=== PATIENT | male | born 1975 | race Caucasian/White ===

== ENCOUNTER 2018-07-25 16:20 | Inpatient (IN) | payer MEDICARE ==
[~2018-07-25] VITALS: Ht 172.7 cm; Wt 125.4 kg
[2018-07-25] MEDS ORDERED: NITROGLYCERIN SUBLINGUAL 0.4 MG BOTTLE OF 25. SL PRN (16:30)
[2018-07-25] MEDS ORDERED: ASPIRIN 325 MG TABLET PO ONE (16:30)
--- NOTE | 2018-07-25 16:30 | PHYS DOC ---
Past Medical History Past Medical History: Diabetes-Type I, High Cholesterol, Hypertension, [place] Past Surgical History: Angioplasty, Other (AICD) Adult General Chief Complaint Chief Complaint: CHEST PAIN HPI HPI Patient is a 43 year old male presented to ER today for evaluation of substernal chest pain that started this morning. Patient fell dizzy this morning and he passed out while he was standing, he landed on the right hip. Patient denies hitting his head, no headache, no neck pain. EMS were called, however he felt better so he declined to come to the hospital. Patient is having more chest pain again so he came in now for evaluation. HE has history coronary artery disease, had numerous stents in his coronary artery. His card lacer is Dr. Law at [facility]. He denies any cough or fever. Review of Systems Review of Systems Constitutional: Denies fever or chills [] Eyes: Denies change in visual acuity, redness, or eye pain [] HENT: Denies nasal congestion or sore throat [] Respiratory: Denies cough or shortness of breath [] Cardiovascular: No additional information not addressed in HPI [] GI: Denies abdominal pain, nausea, vomiting, bloody stools or diarrhea [] : Denies dysuria or hematuria [] Musculoskeletal: Denies back pain or joint pain [] Integument: Denies rash or skin lesions [] Neurologic: Denies headache, focal weakness or sensory changes [] Endocrine: Denies polyuria or polydipsia [] All other systems were reviewed and found to be within normal limits, except as documented in this note. Current Medications Current Medications Current Medications Medications (Trade) Dose Ordered Sig/[facility] Start Time Stop Time Status Last Admin Dose Admin Aspirin ([place] Aspirin) 325 mg 1X ONCE 07/25/18 16:30 07/25/18 16:51 DC 07/25/18 17:16 325 MG Nitroglycerin (Nitrostat) 0.4 mg PRN Q5MIN PRN 07/25/18 16:30 07/26/18 16:29 Allergies Allergies Allergies Coded Allergies Type Severity Reaction Last Updated Verified No Known Drug Allergies 07/25/18 No Physical Exam Physical Exam Constitutional: Well developed, well nourished, NO acute distress, non-toxic appearance. [] HENT: Normocephalic, atraumatic, bilateral external ears normal, oropharynx moist, no oral exudates, nose normal. [] Eyes: PERRLA, EOMI, conjunctiva normal, no discharge. [] Neck: Normal range of motion, no tenderness, supple, no stridor. [] Cardiovascular:Heart rate regular rhythm, no murmur [] Lungs & Thorax: Bilateral breath sounds clear to auscultation [] Abdomen: Bowel sounds normal, soft, no tenderness, no masses, no pulsatile masses. [] Skin: Warm, dry, no erythema, no rash. APPEARED PALE. Back: No tenderness, no CVA tenderness. [] Extremities: No tenderness, no cyanosis, no clubbing, ROM intact, no edema. [] Neurologic: Alert and oriented X 3, normal motor function, normal sensory function, no focal deficits noted. [] Psychologic: Affect normal, judgement normal, mood normal. [] Current Patient Data Vital Signs Vital Signs Date Time Temp Pulse Resp B/P (MAP) Pulse Ox O2 Delivery O2 Flow Rate FiO2 07/25/18 16:30 97.6 70 24 134/70 (91) 95 Room Air 97.6 Lab Values Laboratory Tests Test 07/25/18 16:36 White Blood Count 11.6 x10^3/uL (4.0-11.0) H Red Blood Count 4.86 x10^6/uL (4.30-5.70) Hemoglobin 14.7 g/dL (13.0-17.5) Hematocrit 44.4 % (39.0-53.0) Mean Corpuscular Volume 91 fL (79-100) Mean Corpuscular Hemoglobin 30 pg (25-35) Mean Corpuscular Hemoglobin Concent 33 g/dL (31-37) Red Cell Distribution Width 12.7 % (11.5-14.5) Platelet Count 164 x10^3/uL (140-400) Neutrophils (%) (Auto) 76 % (31-73) H Lymphocytes (%) (Auto) 17 % (24-48) L Monocytes (%) (Auto) 5 % (0-9) Eosinophils (%) (Auto) 1 % (0-3) Basophils (%) (Auto) 1 % (0-3) Neutrophils # (Auto) 8.8 x10^3uL (1.8-7.7) H Lymphocytes # (Auto) 2.0 x10^3/uL (1.0-4.8) Monocytes # (Auto) 0.6 x10^3/uL (0.0-1.1) Eosinophils # (Auto) 0.1 x10^3/uL (0.0-0.7) Basophils # (Auto) 0.1 x10^3/uL (0.0-0.2) Prothrombin Time 13.7 SEC (11.7-14.0) Prothrombin Time INR 1.1 (0.8-1.1) PTT 28 SEC (24-38) Sodium Level 134 mmol/L (136-145) L Potassium Level 4.6 mmol/L (3.5-5.1) Chloride Level 96 mmol/L (98-107) L Carbon Dioxide Level 32 mmol/L (21-32) Anion Gap 6 (6-14) Blood Urea Nitrogen 13 mg/dL (8-26) Creatinine 1.1 mg/dL (0.7-1.3) Estimated GFR (Cockcroft-Gault) 72.4 BUN/Creatinine Ratio 12 (6-20) Glucose Level 229 mg/dL (70-99) H Calcium Level 9.2 mg/dL (8.5-10.1) Magnesium Level 2.0 mg/dL (1.8-2.4) Total Bilirubin 0.4 mg/dL (0.2-1.0) Aspartate Amino Transferase (AST) 24 U/L (15-37) Alanine Aminotransferase (ALT) 39 U/L (16-63) Alkaline Phosphatase 87 U/L (46-116) Creatine Kinase 100 U/L (39-308) Creatine Kinase MB (Mass) 2.0 ng/mL (0.0-3.6) Creatine Kinase MB Relative Index 2.0 % (0-4) Troponin I Quantitative < 0.017 ng/mL (0.000-0.055) FA-Abd-L-Type Natriuretic Peptide 35 pg/mL (0-124) Total Protein 8.3 g/dL (6.4-8.2) H Albumin 3.8 g/dL (3.4-5.0) Albumin/Globulin Ratio 0.8 (1.0-1.7) L Lipase 345 U/L (73-393) Laboratory Tests 07/25/18 16:36 Laboratory Tests 4/28/19 16:36 EKG EKG EKG was read by this physician at 1630, rate of 66 bpm, sinus rhythm, no STEMI. [] Radiology/Procedures Radiology/Procedures [] Course & Med Decision Making Course & Med Decision Making Pertinent Labs and Imaging studies reviewed. (See chart for details) [] Dragon Disclaimer Dragon Disclaimer This electronic medical record was generated, in whole or in part, using a voice recognition dictation system. Departure Departure Impression: Primary Impression: Chest pain Additional Impression: Syncope Disposition: 09 ADMITTED INPATIENT Admitting Physician: Patty Foote Condition: STABLE Problem Qualifiers JUANY HARRISON DO Jul 25, 2018 16:30
[2018-07-25 16:47] LABS: BASO # 0.1 x10^3/uL (0.0-0.2); BASO % 1 % (0-3); EOS # 0.1 x10^3/uL (0.0-0.7); EOS % 1 % (0-3); HEMATOCRIT 44.4 % (39.0-53.0); HEMOGLOBIN 14.7 g/dL (13.0-17.5); LYMPH % 17 % (24-48); MEAN CORPUSCULAR HEMOGLOBIN 30 pg (25-35); MEAN CORPUSCULAR HGB CONC 33 g/dL (31-37); MEAN CORPUSCULAR VOLUME 91 fL (79-100); MONO # 0.6 x10^3/uL (0.0-1.1); MONO % 5 % (0-9); NEUT # 8.8 x10^3uL (1.8-7.7); NEUT % 76 % (31-73); PLATELET COUNT 164 x10^3/uL (140-400); RED BLOOD COUNT 4.86 x10^6/uL (4.30-5.70); RED CELL DISTRIBUTION WIDTH 12.7 % (11.5-14.5); WHITE BLOOD COUNT 11.6 x10^3/uL (4.0-11.0)
[2018-07-25 16:57] LABS: PROTHROMBIN TIME PATIENT 13.7 SEC (11.7-14.0)
[2018-07-25 17:01] LABS: CALCIUM 9.2 mg/dL (8.5-10.1); CREATININE 1.1 mg/dL (0.7-1.3); GFR 72.4; POTASSIUM 4.6 mmol/L (3.5-5.1)
[2018-07-25 17:06] LABS: ALBUMIN 3.8 g/dL (3.4-5.0); ALBUMIN/GLOBULIN RATIO 0.8 (1.0-1.7); TOTAL BILIRUBIN 0.4 mg/dL (0.2-1.0); TOTAL PROTEIN 8.3 g/dL (6.4-8.2)
--- NOTE | 2018-07-25 17:26 | RAD ---
Right hip 2 views with one view pelvis. HISTORY: Hip pain after a fall Single view was taken of the pelvis. Upper pelvis is not entirely included on the current study. Visualized pelvis is intact. AP and lateral views were taken of the right hip. There is no fracture or acute osseous abnormality. IMPRESSION: 1. No fracture or acute osseous abnormality in the right hip. Electronically signed by: Robb Martin MD (07/25/2018 5:23 PM) [id number]
[2018-07-25] MEDS ORDERED: ONDANSETRON PF 4 MG/2 ML VIAL. IV PRN ×2 (17:30→17:45)
[2018-07-25] MEDS ORDERED: ZOLPIDEM 5 MG TABLET. PO PRN (17:45)
[2018-07-25] MEDS ORDERED: ACETAMINOPHEN/CODEINE 300/30MG TABLET. PO PRN (17:45)
[2018-07-25] MEDS ORDERED: MORPHINE SULFATE 2 MG/ML VIAL. IV PRN (17:45)
[2018-07-25] MEDS ORDERED: HYDROcodone/APAP 5/325MG 1 TAB TABLET PO PRN (17:45)
[2018-07-25] MEDS ORDERED: CALCIUM CARBONATE 500 MG TAB.CHEW PO PRN (17:45)
[2018-07-25] MEDS ORDERED: ACETAMINOPHEN 500 MG TABLET PO PRN (17:45)
--- NOTE | 2018-07-25 18:06 | RAD ---
AP chest. HISTORY: Chest pain AP view was taken of the chest. Lungs are free of infiltrates. Heart is normal in size. There is a pacemaker on the left. There is no effusion. IMPRESSION: 1. No acute chest disease. Electronically signed by: Robb Martin MD (07/25/2018 6:04 PM) [id number]
[2018-07-25 18:25] VITALS: BP 110/66
[2018-07-25 18:30] LABS: AMPHETAMINE/METHAMPHETAMINE NEG (NEG); BARBITURATES NEG (NEG); BENZODIAZEPINES POS (NEG); CANNABINOIDS NEG (NEG); COCAINE NEG (NEG); METHADONE NEG (NEG); OPIATES POS (NEG); PHENCYCLIDINE NEG (NEG)
[2018-07-25] MEDS ORDERED: POTA20TA82 PO (19:29)
[2018-07-25] MEDS ORDERED: METF500T16 PO (19:30)
[2018-07-25] MEDS ORDERED: FURO40TA4 PO (19:31)
[2018-07-25] MEDS ORDERED: GLIM4TAB2 PO (19:31)
[2018-07-25] MEDS ORDERED: AMLO10TA8 PO (19:32)
[2018-07-25] MEDS ORDERED: CLOP75TA PO (19:33)
[2018-07-25] MEDS ORDERED: SACU1TAB7 PO (19:33)
[2018-07-25] MEDS ORDERED: EZET10TA18 PO (19:34)
[2018-07-25] MEDS ORDERED: ATORVASTATIN CA80 MG PO (19:35)
[2018-07-25] MEDS ORDERED: CARV25TA PO (19:36)
[2018-07-25] MEDS ORDERED: UBID200C27 PO (19:38)
[2018-07-25] MEDS ORDERED: FISH1CAP PO (19:39)
[2018-07-25] MEDS ORDERED: CYCL10TA2 PO (19:39)
[2018-07-25] MEDS ORDERED: HYDR-2769 PO (19:42)
[2018-07-25] MEDS ORDERED: ALPR1TAB6 PO (19:42)
[2018-07-25] MEDS ORDERED: MORPHINE SULFATE IR PO (20:01)
[2018-07-25] MEDS ORDERED: HYDROcodone/APAP 10/325 1 TAB TABLET PO PRN (20:15)
[2018-07-25] MEDS ORDERED: CYCLOBENZAPRINE 10 MG TABLET. PO PRN (20:15)
[2018-07-25] MEDS: NICOTINE 21MG PATCH. TD SCH (20:50)
[2018-07-25] MEDS: ATORVASTATIN CALCIUM 40 MG TABLET. PO SCH (20:51)
[2018-07-25] MEDS: metFORMIN 500 MG TABLET PO SCH (20:52)
[2018-07-25] MEDS: SACUBITRIL/VALSARTAN 49/51MG TABLET. PO SCH (20:52)
[2018-07-25] MEDS: CARVEDILOL 12.5 MG TABLET. PO SCH (20:53)
[2018-07-25] MEDS: GLIMEPIRIDE 2 MG TABLET. PO SCH (20:53)
[2018-07-25] MEDS: ALPRAZolam 1 MG TABLET PO PRN (20:53)
[2018-07-25] MEDS: MORPHINE IR 15 MG TABLET PO SCH (20:59)
[2018-07-25 23:31] VITALS: BP 111/60
[2018-07-26 00:50] LABS: BASO # 0.1 x10^3/uL (0.0-0.2); BASO % 1 % (0-3); EOS # 0.3 x10^3/uL (0.0-0.7); EOS % 3 % (0-3); HEMOGLOBIN 13.3 g/dL (13.0-17.5); LYMPH # 3.1 x10^3/uL (1.0-4.8); LYMPH % 31 % (24-48); MEAN CORPUSCULAR HEMOGLOBIN 30 pg (25-35); MEAN CORPUSCULAR HGB CONC 33 g/dL (31-37); MEAN CORPUSCULAR VOLUME 91 fL (79-100); MONO # 0.9 x10^3/uL (0.0-1.1); MONO % 9 % (0-9); NEUT # 5.8 x10^3uL (1.8-7.7); NEUT % 57 % (31-73); PLATELET COUNT 147 x10^3/uL (140-400); RED BLOOD COUNT 4.38 x10^6/uL (4.30-5.70); RED CELL DISTRIBUTION WIDTH 12.8 % (11.5-14.5); WHITE BLOOD COUNT 10.1 x10^3/uL (4.0-11.0)
[2018-07-26 03:30] VITALS: BP 126/66
--- NOTE | 2018-07-26 07:26 | EKG ---
[facility] [address] [place] [address] Test Date: 2018-07-25 Test Time: 16:27:29 Pat Name: GIRISH AYOUB Department: Room: 210 1 Gender: M Operations Technician: : 1975 Requested By: JUANY HARRISON Order Number: [id number] Reading MD: Jorge Garrett Measurements Intervals [place] Rate: 66 P: 40 [place]: 148 QRS: 152 QRSD: 142 T: 47 QT: 424 QTc: 446 Interpretive Statements V PACED RHYTHM Electronically Signed On 07-28-2018 17:41:50 CDT by Jorge Garrett
[2018-07-26 07:42] VITALS: BP 130/70
[2018-07-26] MEDS ORDERED: POTASSIUM CHLORIDE 20 MEQ TABLET.ER. PO SCH (08:00)
--- NOTE | 2018-07-26 08:13 | PDOC1 ---
History and Physical Date of Admission: Date of Admission DATE: 07/26/18 TIME: 08:10 Chief Complaint: Chief Complain: Chest discomfort History of Present Illness: HPI: 43 year old male w/ PMHx DM, HTN, HLD, CAD s/p stenting x9, Vfib arrest s/p AICD/PPM who presented to ER today for evaluation of substernal chest pain that started this morning. Patient fell dizzy yesterday morning while doing dishes and he passed out while he was standing, he landed on the right hip. Patient denies hitting his head, no headache, no neck pain. EMS were called, however he felt better so he declined to come to the hospital. Patient was having more chest pain again so he came in for evaluation. No associated SOA, palpitations, diaphoresis, or nausea/vomiting. No recent LE edema, orthopnea, or PND. Stress test and echo conducted 06/21/18 at . Follows very closely with Dr. Ryan at . Has f/u appointment scheduled for July 28. Reports compliance with medications. Was started on Entresto 2 weeks ago. Of note, has had two other episodes of passing out over the last 3 years. Had thorough workup at each time, which reportedly did not have any acute findings. His only complaint this morning after overnight is a dry mouth. Negative orthostatics. Negative jeremy-halpike Past Medical/Surgical History: PMH/PSH: PMHx: DM, HTN, HLD, CAD s/p stenting x9, Vfib arrest s/p AICD/PPM P Surg Hx: AICD Allergies: Allergies: Coded Allergies: No Known Drug Allergies (Unverified , 07/25/18) Family History: Family History: HTN, DM, CAD - father Social History: Social Hisoty: Smoker No ETOH No illicit drug use, lives with and 4 year old daughter Current Medications: Current Medications Current Medications Aspirin ([place] Aspirin) 325 mg 1X ONCE PO Last administered on 07/25/18at 17:16; Start 07/25/18 at 16:30; Stop 07/25/18 at 16:51; Status DC Nitroglycerin (Nitrostat) 0.4 mg PRN Q5MIN PRN SL CP RATING > 1/10; Start 07/25/18 at 16:30; Stop 07/26/18 at 16:29 Ondansetron HCl (Zofran) 4 mg PRN Q8HRS PRN IV NAUSEA/VOMITING; Start 07/25/18 at 17:30; Stop 07/25/18 at 17:37; Status DC Ondansetron HCl (Zofran) 4 mg PRN Q6HRS PRN IV NAUSEA/VOMITING; Start 07/25/18 at 17:45 Morphine Sulfate (Morphine Sulfate) 2 mg PRN Q2HR PRN IV PAIN; Start 07/25/18 a t 17:45 Acetaminophen (Tylenol) 500 mg PRN Q6HRS PRN PO MILD PAIN / TEMP; Start 07/25/18 at 17:45 Acetaminophen/ Codeine Phosphate (Tylenol #3) 1 tab PRN Q6HRS PRN PO MODERATE PAIN; Start 07/25/18 at 17:45 Zolpidem Tartrate (Ambien) 5 mg PRN QHS PRN PO INSOMNIA; Start 07/25/18 at 17:45 Calcium Carbonate/ Glycine (Tums) 500 mg PRN AFTMEALHC PRN PO INDIGESTION; Start 07/25/18 at 17:45 Acetaminophen/ Hydrocodone Bitart (Lortab 5/325) 1 tab PRN Q4HRS PRN PO SEVERE PAIN; Start 07/25/18 at 17:45 Alprazolam (Xanax) 1 mg PRN TID PRN PO ANXIETY / AGITATION Last administered on 07/25/18at 20:53; Start 07/25/18 at 20:15 Amlodipine Besylate (Norvasc) 10 mg DAILY PO ; Start 07/26/18 at 09:00 Clopidogrel Bisulfate (Plavix) 75 mg DAILY PO ; Start 07/26/18 at 09:00 Cyclobenzaprine HCl (Flexeril) 10 mg PRN BID PRN PO MUSCLE SPASMS; Start 07/25/18 at 20:15 EZETIMIBE (Zetia) 10 mg DAILY PO ; Start 07/26/18 at 09:00 Furosemide (Lasix) 40 mg DAILY PO ; Start 07/26/18 at 09:00 Acetaminophen/ Hydrocodone Bitart (Lortab 10/325) 1 tab PRN Q4HRS PRN PO PAIN; Start 07/25/18 at 20:15 Atorvastatin Calcium (Lipitor) 80 mg DAILY PO Last administered on 4/28/19at 20:51; Start 07/25/18 at 21:00 Carvedilol (Coreg) 50 mg BIDWMEALS PO Last administered on 07/25/18 20:53; Start 07/25/18 at 21:00 Fish Oil (Fish Oil) 1,000 mg DAILY PO ; Start 07/26/18 at 09:00 Glimepiride (Amaryl) 4 mg BIDWMEALS PO Last administered on 07/25/18 20:53; Start 07/25/18 at 21:00 Metformin HCl (Glucophage) 1,000 mg BIDWMEALS PO Last administered on 07/25/18 20:52; Start 07/25/18 at 21:00 Potassium Chloride (Klor-Con) 20 meq DAILYWBKFT PO ; Start 07/26/18 at 08:00 Sacubitril/ Valsartan (Entresto 49 Mg-51 Mg) 1 tab BID PO Last administered on 07/25/18 20:52; Start 07/25/18 at 21:00 Non-Formulary Medication (Ubidecarenone (Coenzyme Q-10)) 400 mg DAILY PO ; Start 07/26/18 at 09:00; Status UNV Morphine Sulfate (Morphine Ir) 15 mg TID PO Last administered on 07/25/18 20:59; Start 07/25/18 at 21:00 Nicotine (Nicoderm Cq 21mg) 1 patch DAILY TD Last administered on 07/25/18 20:50; Start 07/25/18 at 21:00 Active Scripts Active Reported [Morphine Sulfate Ir] 15 Mg PO TID Hydrocodone-Apap 10-325 (Hydrocodone Bit/Acetaminophen) 1 Tab Tablet 1 Tab PO PRN Q4HRS PRN Alprazolam 1 Mg Tablet 1 Tab PO TID PRN Cyclobenzaprine Hcl 10 Mg Tablet 10 Mg PO BID PRN Fish Oil 1,200 Mg Fish Oil (Fish Oil/Dha/Epa) 1 Each Capsule 1 Each PO DAILY Coenzyme Q-10 (Ubidecarenone) 200 Mg Capsule 400 Mg PO DAILY Coreg (Carvedilol) 25 Mg Tablet 50 Mg PO BIDWMEALS Atorvastatin Calcium 80 Mg Tablet 1 Tab PO DAILY Zetia (Ezetimibe) 10 Mg Tablet 1 Tab PO DAILY Clopidogrel (Clopidogrel Bisulfate) 75 Mg Tablet 1 Tab PO DAILY Entresto 49 mg-51 mg Tablet (Sacubitril/Valsartan) 1 Each Tablet 1 Each PO BID Amlodipine Besylate 10 Mg Tablet 10 Mg PO DAILY Furosemide 40 Mg Tablet 1 Tab PO DAILY Glimepiride 4 Mg Tablet 1 Tab PO BID Metformin Hcl 500 Mg Tablet 1,000 Mg PO BIDWMEALS Potassium Chloride 20 Meq Tablet.er 20 Meq PO DAILY ROS: Review of Systems Review of System REVIEW OF SYSTEMS: GENERAL: Denies weakness SKIN: No bruising, hair changes or rashes. EYES: No blurred, double or loss of vision. NOSE AND THROAT: No history of nosebleeds, hoarseness or sore throat. HEART: No history of palpitations, chest pain or shortness of breath on exertion. LUNGS: Denies cough, hemoptysis, wheezing or shortness of breath. GASTROINTESTINAL: Denies changes in appetite, nausea, vomiting, diarrhea or constipation. GENITOURINARY: No history of frequency, urgency, hesitancy or nocturia. NEUROLOGIC: Denies history of numbness, tingling, tremor or weakness. PSYCHIATRIC: No history of panic, anxiety or depression. ENDOCRINE: No history of heat or cold intolerance, polyuria or polydipsia. EXTREMITIES: Denies muscle weakness, joint pain, pain on walking or stiffness. Physical Exam: Vital Signs: Vital Signs Date Time Temp Pulse Resp B/P (MAP) Pulse Ox O2 Delivery O2 Flow Rate FiO2 07/26/18 07:42 98.7 82 16 130/70 (90) 94 Room Air 98.7 Physcial Exam: GEN.: No apparent distress. Alert and oriented. HEENT: Head is normocephalic, atraumatic NECK: Supple, no JVD LUNGS: Clear to auscultation without rhonchi or wheezing HEART: RRR, S1, S2 present. Peripheral pulses intact ABDOMEN: Soft, nontender. Positive bowel sounds no organomegaly EXTREMITIES: Without any cyanosis, clubbing, or edema. Pedal pulses intact NEUROLOGIC: Normal speech, normal tone. A&O x 3 PSYCHIATRIC: Normal affect, normal mood. Stable SKIN: No ulcerations or rashes Labs: Labs: Laboratory Tests Test 07/25/18 16:36 07/25/18 17:45 07/25/18 20:49 07/25/18 21:00 White Blood Count 11.6 x10^3/uL (4.0-11.0) Red Blood Count 4.86 x10^6/uL (4.30-5.70) Hemoglobin 14.7 g/dL (13.0-17.5) Hematocrit 44.4 % (39.0-53.0) Mean Corpuscular Volume 91 fL (79-100) Mean Corpuscular Hemoglobin 30 pg (25-35) Mean Corpuscular Hemoglobin Concent 33 g/dL (31-37) Red Cell Distribution Width 12.7 % (11.5-14.5) Platelet Count 164 x10^3/uL (140-400) Neutrophils (%) (Auto) 76 % (31-73) Lymphocytes (%) (Auto) 17 % (24-48) Monocytes (%) (Auto) 5 % (0-9) Eosinophils (%) (Auto) 1 % (0-3) Basophils (%) (Auto) 1 % (0-3) Neutrophils # (Auto) 8.8 x10^3uL (1.8-7.7) Lymphocytes # (Auto) 2.0 x10^3/uL (1.0-4.8) Monocytes # (Auto) 0.6 x10^3/uL (0.0-1.1) Eosinophils # (Auto) 0.1 x10^3/uL (0.0-0.7) Basophils # (Auto) 0.1 x10^3/uL (0.0-0.2) Prothrombin Time 13.7 SEC (11.7-14.0) Prothromb Time International Ratio 1.1 (0.8-1.1) Activated Partial Thromboplast Time 28 SEC (24-38) Sodium Level 134 mmol/L (136-145) Potassium Level 4.6 mmol/L (3.5-5.1) Chloride Level 96 mmol/L (98-107) Carbon Dioxide Level 32 mmol/L (21-32) Anion Gap 6 (6-14) Blood Urea Nitrogen 13 mg/dL (8-26) Creatinine 1.1 mg/dL (0.7-1.3) Estimated GFR (Cockcroft-Gault) 72.4 BUN/Creatinine Ratio 12 (6-20) Glucose Level 229 mg/dL (70-99) Calcium Level 9.2 mg/dL (8.5-10.1) Magnesium Level 2.0 mg/dL (1.8-2.4) Total Bilirubin 0.4 mg/dL (0.2-1.0) Aspartate Amino Transf (AST/SGOT) 24 U/L (15-37) Alanine Aminotransferase (ALT/SGPT) 39 U/L (16-63) Alkaline Phosphatase 87 U/L (46-116) Creatine Kinase 100 U/L (39-308) Creatine Kinase MB (Mass) 2.0 ng/mL (0.0-3.6) Creatine Kinase MB Relative Index 2.0 % (0-4) Troponin I Quantitative < 0.017 ng/mL (0.000-0.055) < 0.017 ng/mL (0.000-0.055) PS-Xej-I-Type Natriuretic Peptide 35 pg/mL (0-124) Total Protein 8.3 g/dL (6.4-8.2) Albumin 3.8 g/dL (3.4-5.0) Albumin/Globulin Ratio 0.8 (1.0-1.7) Lipase 345 U/L (73-393) Urine Opiates Screen Pos (NEG) Urine Methadone Screen Neg (NEG) Urine Barbiturates Neg (NEG) Urine Phencyclidine Screen Neg (NEG) Urine Amphetamine/Methamphetamine Neg (NEG) Urine Benzodiazepines Screen Pos (NEG) Urine Cocaine Screen Neg (NEG) Urine Cannabinoids Screen Neg (NEG) Urine Ethyl Alcohol Neg (NEG) Glucose (Fingerstick) 155 mg/dL (70-99) Test 07/26/18 00:30 07/26/18 07:24 White Blood Count 10.1 x10^3/uL (4.0-11.0) Red Blood Count 4.38 x10^6/uL (4.30-5.70) Hemoglobin 13.3 g/dL (13.0-17.5) Hematocrit 40.0 % (39.0-53.0) Mean Corpuscular Volume 91 fL (79-100) Mean Corpuscular Hemoglobin 30 pg (25-35) Mean Corpuscular Hemoglobin Concent 33 g/dL (31-37) Red Cell Distribution Width 12.8 % (11.5-14.5) Platelet Count 147 x10^3/uL (140-400) Neutrophils (%) (Auto) 57 % (31-73) Lymphocytes (%) (Auto) 31 % (24-48) Monocytes (%) (Auto) 9 % (0-9) Eosinophils (%) (Auto) 3 % (0-3) Basophils (%) (Auto) 1 % (0-3) Neutrophils # (Auto) 5.8 x10^3uL (1.8-7.7) Lymphocytes # (Auto) 3.1 x10^3/uL (1.0-4.8) Monocytes # (Auto) 0.9 x10^3/uL (0.0-1.1) Eosinophils # (Auto) 0.3 x10^3/uL (0.0-0.7) Basophils # (Auto) 0.1 x10^3/uL (0.0-0.2) Troponin I Quantitative < 0.017 ng/mL (0.000-0.055) Glucose (Fingerstick) 155 mg/dL (70-99) Laboratory Tests Test 07/25/18 16:36 07/25/18 17:45 07/25/18 20:49 07/25/18 21:00 White Blood Count 11.6 x10^3/uL (4.0-11.0) Red Blood Count 4.86 x10^6/uL (4.30-5.70) Hemoglobin 14.7 g/dL (13.0-17.5) Hematocrit 44.4 % (39.0-53.0) Mean Corpuscular Volume 91 fL (79-100) Mean Corpuscular Hemoglobin 30 pg (25-35) Mean Corpuscular Hemoglobin Concent 33 g/dL (31-37) Red Cell Distribution Width 12.7 % (11.5-14.5) Platelet Count 164 x10^3/uL (140-400) Neutrophils (%) (Auto) 76 % (31-73) Lymphocytes (%) (Auto) 17 % (24-48) Monocytes (%) (Auto) 5 % (0-9) Eosinophils (%) (Auto) 1 % (0-3) Basophils (%) (Auto) 1 % (0-3) Neutrophils # (Auto) 8.8 x10^3uL (1.8-7.7) Lymphocytes # (Auto) 2.0 x10^3/uL (1.0-4.8) Monocytes # (Auto) 0.6 x10^3/uL (0.0-1.1) Eosinophils # (Auto) 0.1 x10^3/uL (0.0-0.7) Basophils # (Auto) 0.1 x10^3/uL (0.0-0.2) Prothrombin Time 13.7 SEC (11.7-14.0) Prothromb Time International Ratio 1.1 (0.8-1.1) Activated Partial Thromboplast Time 28 SEC (24-38) Sodium Level 134 mmol/L (136-145) Potassium Level 4.6 mmol/L (3.5-5.1) Chloride Level 96 mmol/L (98-107) Carbon Dioxide Level 32 mmol/L (21-32) Anion Gap 6 (6-14) Blood Urea Nitrogen 13 mg/dL (8-26) Creatinine 1.1 mg/dL (0.7-1.3) Estimated GFR (Cockcroft-Gault) 72.4 BUN/Creatinine Ratio 12 (6-20) Glucose Level 229 mg/dL (70-99) Calcium Level 9.2 mg/dL (8.5-10.1) Magnesium Level 2.0 mg/dL (1.8-2.4) Total Bilirubin 0.4 mg/dL (0.2-1.0) Aspartate Amino Transf (AST/SGOT) 24 U/L (15-37) Alanine Aminotransferase (ALT/SGPT) 39 U/L (16-63) Alkaline Phosphatase 87 U/L (46-116) Creatine Kinase 100 U/L (39-308) Creatine Kinase MB (Mass) 2.0 ng/mL (0.0-3.6) Creatine Kinase MB Relative Index 2.0 % (0-4) Troponin I Quantitative < 0.017 ng/mL (0.000-0.055) < 0.017 ng/mL (0.000-0.055) LV-Pve-W-Type Natriuretic Peptide 35 pg/mL (0-124) Total Protein 8.3 g/dL (6.4-8.2) Albumin 3.8 g/dL (3.4-5.0) Albumin/Globulin Ratio 0.8 (1.0-1.7) Lipase 345 U/L (73-393) Urine Opiates Screen Pos (NEG) Urine Methadone Screen Neg (NEG) Urine Barbiturates Neg (NEG) Urine Phencyclidine Screen Neg (NEG) Urine Amphetamine/Methamphetamine Neg (NEG) Urine Benzodiazepines Screen Pos (NEG) Urine Cocaine Screen Neg (NEG) Urine Cannabinoids Screen Neg (NEG) Urine Ethyl Alcohol Neg (NEG) Glucose (Fingerstick) 155 mg/dL (70-99) Test 07/26/18 00:30 07/26/18 07:24 White Blood Count 10.1 x10^3/uL (4.0-11.0) Red Blood Count 4.38 x10^6/uL (4.30-5.70) Hemoglobin 13.3 g/dL (13.0-17.5) Hematocrit 40.0 % (39.0-53.0) Mean Corpuscular Volume 91 fL (79-100) Mean Corpuscular Hemoglobin 30 pg (25-35) Mean Corpuscular Hemoglobin Concent 33 g/dL (31-37) Red Cell Distribution Width 12.8 % (11.5-14.5) Platelet Count 147 x10^3/uL (140-400) Neutrophils (%) (Auto) 57 % (31-73) Lymphocytes (%) (Auto) 31 % (24-48) Monocytes (%) (Auto) 9 % (0-9) Eosinophils (%) (Auto) 3 % (0-3) Basophils (%) (Auto) 1 % (0-3) Neutrophils # (Auto) 5.8 x10^3uL (1.8-7.7) Lymphocytes # (Auto) 3.1 x10^3/uL (1.0-4.8) Monocytes # (Auto) 0.9 x10^3/uL (0.0-1.1) Eosinophils # (Auto) 0.3 x10^3/uL (0.0-0.7) Basophils # (Auto) 0.1 x10^3/uL (0.0-0.2) Troponin I Quantitative < 0.017 ng/mL (0.000-0.055) Glucose (Fingerstick) 155 mg/dL (70-99) Assessment/Plan Assessment/Plan A/P: Chest pain - high risk ACS based on history. Troponins trended negative, EKG negative - cardiology consulted Syncope and collapse - still in outpatient workup for this. Will interrogate his device. He just had carotid, echo performed, does not wish for further w/u DM - on meds outpatient, cont HTN - will cont home medications HLD - cont statin CAD s/p stenting - cont medications Cardiomyopathy - with h/o vfib arrest s/p AICD/PPM - will interrogate device, consult cardiology FEN - Cardiac diet PPX - Heparin FULL CODE Inpatient for high risk ACS patient with chest pain and syncope. Will interrogate device and f/u cardiology recs HASEEB CONNOR MD Jul 26, 2018 08:13
[2018-07-26] MEDS: NICOTINE 21MG PATCH. TD SCH (08:49)
[2018-07-26] MEDS: CARVEDILOL 12.5 MG TABLET. PO SCH (08:50)
[2018-07-26] MEDS: ATORVASTATIN CALCIUM 40 MG TABLET. PO SCH (08:50)
[2018-07-26] MEDS: MORPHINE IR 15 MG TABLET PO SCH (08:51)
[2018-07-26] MEDS: metFORMIN 500 MG TABLET PO SCH (08:51)
[2018-07-26] MEDS: GLIMEPIRIDE 2 MG TABLET. PO SCH (08:52)
[2018-07-26] MEDS: SACUBITRIL/VALSARTAN 49/51MG TABLET. PO SCH (08:52)
[2018-07-26] MEDS: ALPRAZolam 1 MG TABLET PO PRN (08:53)
[2018-07-26] MEDS ORDERED: EZETIMIBE 10 MG TABLET. PO SCH (09:00)
[2018-07-26] MEDS ORDERED: OMEGA-3 FATTY ACIDS/FISH OIL 1,000 MG CAPSULE. PO SCH (09:00)
[2018-07-26] MEDS ORDERED: CLOPIDOGREL BISULFATE 75 MG TABLET PO SCH (09:00)
[2018-07-26] MEDS ORDERED: amLODIPine BESYLATE 10 MG TABLET PO SCH (09:00)
[2018-07-26] MEDS ORDERED: UBIDECARENONE 400 MG PO SCH (09:00)
[2018-07-26] MEDS ORDERED: FUROSEMIDE 40 MG TABLET. PO SCH (09:00)
--- NOTE | 2018-07-26 09:00 | PDOC2 ---
CARDIAC CONSULT DATE OF CONSULT Date of Consult DATE: 07/26/18 TIME: 08:48 REASON FOR CONSULT Reason for Consult: Chest pain REFERRING PHYSICIAN Referring Physician: Dr. Chamberlain SOURCE Source: Chart review, Patient HISTORY OF PRESENT ILLNESS HISTORY OF PRESENT ILLNESS This is a 43 yo male, with an extensive cardiac history including CAD s/p PCI/stents x9, V-fib arrest, ICM s/p AICD, hypertension, hyperlipidemia, and diabetes, who presented secondary to chest pain, dizziness, and syncopal episode. Patient reports he was standing in the kitchen doing dishes and turned quickly. Subsequently became dizzy and passed out. Fell onto his right hip. Was only out for a brief second. Has intermittent tightness across his central chest. Patient reports he has a 70% lesion in one of his vessels that is being medically managed. Tightness last night lasted longer than usual so he decided to come in for further evacuation and treatment. No associated SOA, palpitations, diaphoresis, or nausea/vomiting. No recent LE edema, orthopnea, or PND. Stress test and echo conducted 06/21/18 at . Follows very closely with Dr. Ryan at . Has f/u appointment scheduled for July 28. Reports compliance with medications. Was started on Entresto 2 weeks ago. Of note, has had two other episodes of passing out over the last 3 years. Had thorough workup at each time, which reportedly did not have any acute findings. PAST MEDICAL HISTORY Cardiovascular: CAD (s/p PCI/stents (9)), CHF, HTN, Syncope, Hyperlipidemia Pulmonary: Other (JUNIOR) CENTRAL NERVOUS SYSTEM: Seizure GI: GERD Heme/Onc: No pertinent hx Hepatobiliary: No pertinent hx Psych: Anxiety, Depression Musculoskeletal: Osteoarthritis Rheumatologic: No pertinent hx Infectious disease: No pertinent hx ENT: No pertinent hx Renal/: No pertinent hx Endocrine: Diabetes Dermatology: No pertinent hx PAST SURGICAL HISTORY Past Surgical History: Pacemaker (AICD) FAMILY HISTORY Family History: Coronary Artery Disease, Diabetes, Heart Disease, Hypertension SOCIAL HISTORY Smoke: No ALCOHOL: none Drugs: None Lives: with Family CURRENT MEDICATIONS CURRENT MEDICATIONS Current Medications Medications (Trade) Dose Ordered Sig/Emiliano Route PRN Reason Start Time Stop Time Status Last Admin Dose Admin Aspirin ([place] Aspirin) 325 mg 1X ONCE PO 07/25/18 16:30 07/25/18 16:51 DC 07/25/18 17:16 Alprazolam (Xanax) 1 mg PRN TID PRN PO ANXIETY / AGITATION 07/25/18 20:15 07/25/18 20:53 Atorvastatin Calcium (Lipitor) 80 mg DAILY PO 07/25/18 21:00 07/25/18 20:51 Carvedilol (Coreg) 50 mg BIDWMEALS PO 07/25/18 21:00 07/25/18 20:53 Glimepiride (Amaryl) 4 mg BIDWMEALS PO 07/25/18 21:00 07/25/18 20:53 Metformin HCl (Glucophage) 1,000 mg BIDWMEALS PO 07/25/18 21:00 07/25/18 20:52 Sacubitril/ Valsartan (Entresto 49 Mg-51 Mg) 1 tab BID PO 07/25/18 21:00 07/25/18 20:52 Morphine Sulfate (Morphine Ir) 15 mg TID PO 07/25/18 21:00 07/25/18 20:59 Nicotine (Nicoderm Cq 21mg) 1 patch DAILY TD 07/25/18 21:00 07/25/18 20:50 ALLERGIES ALLERGIES: Coded Allergies: No Known Drug Allergies (Unverified , 07/25/18) ROS Review of System 14 point ROS conducted with pertinent positives noted above in HPI PHYSICAL EXAM General: Alert, Oriented X3, Cooperative HEENT: Atraumatic, Mucous membr. moist/pink Lungs: Clear to auscultation, Normal air movement Heart: Regular rate, Normal S1, Normal S2 Abdomen: Soft, No tenderness Extremities: No edema, Normal pulses Neuro: Normal speech, Sensation intact Psych/Mental Status: Mental status NL, Mood NL MUSCULOSKELETAL: Osteoarthritic changes both hands VITALS VITALS Vital Signs Date Time Temp Pulse Resp B/P (MAP) Pulse Ox O2 Delivery O2 Flow Rate FiO2 07/26/18 07:42 98.7 82 16 130/70 (90) 94 Room Air 98.7 LABS Lab: Laboratory Tests Test 07/25/18 16:36 07/25/18 17:45 07/25/18 20:49 07/25/18 21:00 White Blood Count 11.6 x10^3/uL (4.0-11.0) Red Blood Count 4.86 x10^6/uL (4.30-5.70) Hemoglobin 14.7 g/dL (13.0-17.5) Hematocrit 44.4 % (39.0-53.0) Mean Corpuscular Volume 91 fL (79-100) Mean Corpuscular Hemoglobin 30 pg (25-35) Mean Corpuscular Hemoglobin Concent 33 g/dL (31-37) Red Cell Distribution Width 12.7 % (11.5-14.5) Platelet Count 164 x10^3/uL (140-400) Neutrophils (%) (Auto) 76 % (31-73) Lymphocytes (%) (Auto) 17 % (24-48) Monocytes (%) (Auto) 5 % (0-9) Eosinophils (%) (Auto) 1 % (0-3) Basophils (%) (Auto) 1 % (0-3) Neutrophils # (Auto) 8.8 x10^3uL (1.8-7.7) Lymphocytes # (Auto) 2.0 x10^3/uL (1.0-4.8) Monocytes # (Auto) 0.6 x10^3/uL (0.0-1.1) Eosinophils # (Auto) 0.1 x10^3/uL (0.0-0.7) Basophils # (Auto) 0.1 x10^3/uL (0.0-0.2) Prothrombin Time 13.7 SEC (11.7-14.0) Prothromb Time International Ratio 1.1 (0.8-1.1) Activated Partial Thromboplast Time 28 SEC (24-38) Sodium Level 134 mmol/L (136-145) Potassium Level 4.6 mmol/L (3.5-5.1) Chloride Level 96 mmol/L (98-107) Carbon Dioxide Level 32 mmol/L (21-32) Anion Gap 6 (6-14) Blood Urea Nitrogen 13 mg/dL (8-26) Creatinine 1.1 mg/dL (0.7-1.3) Estimated GFR (Cockcroft-Gault) 72.4 BUN/Creatinine Ratio 12 (6-20) Glucose Level 229 mg/dL (70-99) Calcium Level 9.2 mg/dL (8.5-10.1) Magnesium Level 2.0 mg/dL (1.8-2.4) Total Bilirubin 0.4 mg/dL (0.2-1.0) Aspartate Amino Transf (AST/SGOT) 24 U/L (15-37) Alanine Aminotransferase (ALT/SGPT) 39 U/L (16-63) Alkaline Phosphatase 87 U/L (46-116) Creatine Kinase 100 U/L (39-308) Creatine Kinase MB (Mass) 2.0 ng/mL (0.0-3.6) Creatine Kinase MB Relative Index 2.0 % (0-4) Troponin I Quantitative < 0.017 ng/mL (0.000-0.055) < 0.017 ng/mL (0.000-0.055) FA-Qhc-U-Type Natriuretic Peptide 35 pg/mL (0-124) Total Protein 8.3 g/dL (6.4-8.2) Albumin 3.8 g/dL (3.4-5.0) Albumin/Globulin Ratio 0.8 (1.0-1.7) Lipase 345 U/L (73-393) Urine Opiates Screen Pos (NEG) Urine Methadone Screen Neg (NEG) Urine Barbiturates Neg (NEG) Urine Phencyclidine Screen Neg (NEG) Urine Amphetamine/Methamphetamine Neg (NEG) Urine Benzodiazepines Screen Pos (NEG) Urine Cocaine Screen Neg (NEG) Urine Cannabinoids Screen Neg (NEG) Urine Ethyl Alcohol Neg (NEG) Glucose (Fingerstick) 155 mg/dL (70-99) Test 07/26/18 00:30 07/26/18 07:24 White Blood Count 10.1 x10^3/uL (4.0-11.0) Red Blood Count 4.38 x10^6/uL (4.30-5.70) Hemoglobin 13.3 g/dL (13.0-17.5) Hematocrit 40.0 % (39.0-53.0) Mean Corpuscular Volume 91 fL (79-100) Mean Corpuscular Hemoglobin 30 pg (25-35) Mean Corpuscular Hemoglobin Concent 33 g/dL (31-37) Red Cell Distribution Width 12.8 % (11.5-14.5) Platelet Count 147 x10^3/uL (140-400) Neutrophils (%) (Auto) 57 % (31-73) Lymphocytes (%) (Auto) 31 % (24-48) Monocytes (%) (Auto) 9 % (0-9) Eosinophils (%) (Auto) 3 % (0-3) Basophils (%) (Auto) 1 % (0-3) Neutrophils # (Auto) 5.8 x10^3uL (1.8-7.7) Lymphocytes # (Auto) 3.1 x10^3/uL (1.0-4.8) Monocytes # (Auto) 0.9 x10^3/uL (0.0-1.1) Eosinophils # (Auto) 0.3 x10^3/uL (0.0-0.7) Basophils # (Auto) 0.1 x10^3/uL (0.0-0.2) Troponin I Quantitative < 0.017 ng/mL (0.000-0.055) Glucose (Fingerstick) 155 mg/dL (70-99) ASSESSMENT/PLAN ASSESSMENT/PLAN 1. Chest pain with history of chronic angina. AMI ruled out. 2. Syncopal episode; no acute arrhythmias note on tele 3. CAD s/p PCI/stents x9. Follows with Dr. Ryan at . Has appointment this Thursday. Echo and stress test conducted 06/24/18. Most recent cath 10/2017. 4. Ischemic cardiomyopathy; s/p AICD ([employer]) 5. Chronic systolic HF; compensated 6. Hypertension; controlled 7. Hyperlipidemia 8. Diabetes, II 9. Probable JUNIOR Recommendations Interrogate device Obtain records from . Echo to assess LV systolic function Check orthostatics Continue HF regimen including Entresto unless significant orthostasis noted Secondary prevention measures Plavix, statin, BB. Add ASA Outpatient JUNIOR workup as per PCP If above negative, may discharge from a CV standpoint and f/u with [facility] on Thursday as scheduled. YORDAN RICE APRN Jul 26, 2018 09:00
[2018-07-26 09:30] LABS: CHOLESTEROL/HDL RATIO 5.3
[2018-07-26 10:07] VITALS: BP_SYST 132; BP_SYST 133; BP_SYST 148; BP_DIAS 56; BP_DIAS 62; BP_DIAS 65
--- NOTE | 2018-07-26 10:12 | NUR ---
SW reviewed pt's medical chart and evaluated for potential dc needs. Pt is from home with family and was admitted for chest pain and syncope. PT/OT has not been ordered and there are no dc needs at this time. SW will be available if pt's condition changes and dc planning is required.
[2018-07-26] MEDS ORDERED: ASPIRIN ENTERIC COATED 81 MG TABLET.DR. PO SCH (11:30)
[2018-07-26] MEDS ORDERED: Nicotine 21MG TD (12:44)
--- NOTE | 2018-07-26 12:57 | PDOC3 ---
[facility]-Discharge Summary Date of Admission: Date of Admission: Jul 25, 2018 Date of Discharge: Date of Discharge: Jul 26, 2018 Admission Diagnosis: Admitting Diagnosis: Chest pain Syncope Discharge Diagnosis: Discharge Diagnosis: Chest pain Syncope Consults: Consults: Cardiology Hospital Course: Hospital Course: 43 year old male w/ PMHx DM, HTN, HLD, CAD s/p stenting x9, Vfib arrest s/p AICD/PPM who presented to ER today for evaluation of substernal chest pain that started this morning. Patient fell dizzy yesterday morning while doing dishes and he passed out while he was standing, he landed on the right hip. Patient denies hitting his head, no headache, no neck pain. EMS were called, however he felt better so he declined to come to the hospital. Patient was having more chest pain again so he came in for evaluation. No associated SOA, palpitations, diaphoresis, or nausea/vomiting. No recent LE edema, orthopnea, or PND. Stress test and echo conducted 06/21/18 at . Follows very closely with Dr. Ryan at . Has f/u appointment scheduled for July 28. Reports compliance with medications. Was started on Entresto 2 weeks ago. Of note, has had two other episodes of passing out over the last 3 years. Had thorough workup at each time, which reportedly did not have any acute findings. His only complaint this morning after overnight is a dry mouth. Negative orthostatics. Negative jeremy-halpike. He was seen by cardiology, ruled out for acute [place]. AICD interrogation showed last event was February 2018. He wishes for d/c into the care of his and cardiology f/u in 48 hours. A/P: Chest pain - high risk ACS based on history. Troponins trended negative, EKG negative - cardiology consulted Syncope and collapse - still in outpatient workup for this. negative interrogation of his device. He just had carotid, echo performed, does not wish for further w/u DM - on meds outpatient, cont HTN - will cont home medications HLD - cont statin CAD s/p stenting - cont medications Cardiomyopathy - with h/o vfib arrest s/p AICD/PPM - will interrogate device, consult cardiology Greater than 105 minutes spent on same day admit and discharge Disposition: Disposition/Orders: D/C to Home Activity: Activity: Resume previous activity Diet: Diet: Cardiac Medications: Home Meds Active Scripts [Nicotine 21MG] 1 PATCH PATCH No Conflict Check, 1 PATCH TD DAILY for Smoking cessation for 30 Days, #30 Prov:HASEEB CONNOR MD 07/26/18 Reported Medications [Morphine Sulfate Ir] No Conflict Check, 15 MG PO TID for CHRONIC PAIN 07/25/18 Hydrocodone Bit/Acetaminophen (HYDROCODONE-APAP 10-325 ) 1 Tab Tablet, 1 TAB PO PRN Q4HRS PRN for PAIN, TAB 0 Refills 07/25/18 Alprazolam (ALPRAZOLAM) 1 Mg Tablet, 1 TAB PO TID PRN for ANXIETY / AGITATION, #90 TAB 07/25/18 Cyclobenzaprine Hcl (CYCLOBENZAPRINE HCL) 10 Mg Tablet, 10 MG PO BID PRN for MUSCLE SPASMS, TAB 07/25/18 Fish Oil/Dha/Epa (FISH OIL 1,200 MG FISH OIL) 1 Each Capsule, 1 EACH PO DAILY for DR ORDERED, CAP 07/25/18 Ubidecarenone (Coenzyme Q-10) 200 Mg Capsule, 400 MG PO DAILY for DR ORDERED, CAP 07/25/18 Carvedilol (COREG) 25 Mg Tablet, 50 MG PO BIDWMEALS for CARDIAC, TAB 07/25/18 Atorvastatin Calcium (ATORVASTATIN CALCIUM) 80 Mg Tablet, 1 TAB PO DAILY for HIGH CHOL, #30 TAB 5 Refills 07/25/18 Ezetimibe (ZETIA) 10 Mg Tablet, 1 TAB PO DAILY for CHOL, #30 TAB 5 Refills 07/25/18 Clopidogrel Bisulfate (CLOPIDOGREL) 75 Mg Tablet, 1 TAB PO DAILY for DR ORDERED, #90 TAB 1 Refill 07/25/18 Sacubitril/Valsartan (Entresto 49 mg-51 mg Tablet) 1 Each Tablet, 1 EACH PO BID for DR ORDERED, TAB 07/25/18 Amlodipine Besylate (AMLODIPINE BESYLATE) 10 Mg Tablet, 10 MG PO DAILY for BLOOD PRESSURE, TAB 07/25/18 Furosemide (FUROSEMIDE) 40 Mg Tablet, 1 TAB PO DAILY for DR ORDERED, #30 TAB 5 Refills 07/25/18 Glimepiride (GLIMEPIRIDE) 4 Mg Tablet, 1 TAB PO BID for DIABETIC, #180 TAB 1 Refill 07/25/18 Metformin Hcl (METFORMIN HCL) 500 Mg Tablet, 1000 MG PO BIDWMEALS for ANTI- DIABETIC, TAB 0 Refills 07/25/18 Potassium Chloride (POTASSIUM CHLORIDE) 20 Meq Tablet.er, 20 MEQ PO DAILY for DR ORDERED, TAB.SR 07/25/18 Scheduled Amlodipine Besylate (Amlodipine Besylate), 10 MG PO DAILY, (Reported) Atorvastatin Calcium (Atorvastatin Calcium), 1 TAB PO DAILY, (Reported) Carvedilol (Coreg), 50 MG PO BIDWMEALS, (Reported) Clopidogrel Bisulfate (Clopidogrel), 1 TAB PO DAILY, (Reported) Ezetimibe (Zetia), 1 TAB PO DAILY, (Reported) Fish Oil/Dha/Epa (Fish Oil 1,200 Mg Fish Oil), 1 EACH PO DAILY, (Reported) Furosemide (Furosemide), 1 TAB PO DAILY, (Reported) Glimepiride (Glimepiride), 1 TAB PO BID, (Reported) Metformin Hcl (Metformin Hcl), 1,000 MG PO BIDWMEALS, (Reported) Potassium Chloride (Potassium Chloride), 20 MEQ PO DAILY, (Reported) Sacubitril/Valsartan (Entresto 49 mg-51 mg Tablet), 1 EACH PO BID, (Reported) Ubidecarenone (Coenzyme Q-10), 400 MG PO DAILY, (Reported) [Morphine Sulfate Ir], 15 MG PO TID, (Reported) [Nicotine 21MG], 1 PATCH TD DAILY Scheduled PRN Alprazolam (Alprazolam), 1 TAB PO TID PRN for ANXIETY / AGITATION, (Reported) Cyclobenzaprine Hcl (Cyclobenzaprine Hcl), 10 MG PO BID PRN for MUSCLE SPASMS, (Reported) Hydrocodone Bit/Acetaminophen (Hydrocodone-Apap 10-325 ), 1 TAB PO PRN Q4HRS PRN for PAIN, (Reported) HASEEB CONNOR MD Jul 26, 2018 12:57
--- NOTE | 2018-07-26 13:24 | NUR ---
Discharge Note: DYLON AYOUB Discharge instructions and discharge home medications reviewed with Patient and a copy given. All questions have been answered and understanding verbalized. The following instructions and handouts were given: see under prabhumarcelino parson. Discontinued IV lines and catheter intact. Patient discharged to home with spouse; ambulating under own medel.
== END 2018-07-26 13:29 | disposition home or self-care (01) | DRG 392 ==
LOC: ER 16:20 → 2 NORTH 17:22
PROVIDERS: ADMIT Internal Medicine; ATTEND Internal Medicine
PROC: 4B02XTZ Measurement of Cardiac Defibrillator, External Approach (ICD-10-PCS; principal; 2018-07-26)
DX: K21.9 Gastro-esophageal reflux disease without esophagitis (principal); I50.22 Chronic systolic (congestive) heart failure; E10.9 Type 1 diabetes mellitus without complications; E78.00 Pure hypercholesterolemia, unspecified; E78.5 Hyperlipidemia, unspecified; F17.200 Nicotine dependence, unspecified, uncomplicated; G47.33 Obstructive sleep apnea (adult) (pediatric); I11.0 Hypertensive heart disease with heart failure; I25.10 Atherosclerotic heart disease of native coronary artery without angina pectoris; I25.5 Ischemic cardiomyopathy; Z79.4 Long term (current) use of insulin; Z82.49 Family history of ischemic heart disease and other diseases of the circulatory system; Z95.5 Presence of coronary angioplasty implant and graft; Z95.810 Presence of automatic (implantable) cardiac defibrillator; Z83.3 Family history of diabetes mellitus; F32.9 Major depressive disorder, single episode, unspecified; F41.9 Anxiety disorder, unspecified; M19.90 Unspecified osteoarthritis, unspecified site
CPT/HCPCS: 36415; 71045; 73502; 80053; 80061; 80307; 82550; 82553; 82962; 83690; 83735; 83880; 84484; 85025; 85610; 85730; 93005; 99285-25